=== PATIENT | male | born 1985 | race Caucasian/White ===

== ENCOUNTER 2023-12-13 19:55 | Emergency (ER) | payer SELFPAY ==
[~2023-12-13] VITALS: Ht 177.8 cm; Wt 82.0 kg
[2023-12-13 20:06] VITALS: TEMP 97.9; O2SAT 98
[2023-12-13] MEDS ORDERED: HYDROCODONE/ACETAMINOPHEN 5/325MG TABLET PO ONE (20:30)
[2023-12-13 20:44] VITALS: BP 118/76; PULSE 88; RESP 18
[2023-12-13] MEDS ORDERED: NAPR-1176 MT (23:27)
[2023-12-13] MEDS ORDERED: LIDO700A15 TP (23:27)
[2023-12-13] MEDS ORDERED: ACETAMINOPHEN 325MG TABLET PO ONE (23:30)
== END 2023-12-13 23:46 | disposition home or self-care (01) ==
LOC: ER 19:55
DX: S06.0X0A Concussion without loss of consciousness, initial encounter (principal); F41.9 Anxiety disorder, unspecified; F31.9 Bipolar disorder, unspecified; F43.10 Post-traumatic stress disorder, unspecified; Y08.89XA Assault by other specified means, initial encounter; Y93.89 Activity, other specified; Y92.89 Other specified places as the place of occurrence of the external cause; Y99.8 Other external cause status
CPT/HCPCS: 71045; 73110; 73130; 99284